=== PATIENT | female | born 1950 | race Two or more races ===

== ENCOUNTER → 2017-11-11 | Outpatient (CLI) | payer MEDICARE ==
--- NOTE | 2017-11-11 14:11 | REP ---
Clinical: Cough and shortness of breath. Technique: PA and lateral. Comparison: None. Findings: Mediastinum and cardiac silhouette are normal. Lung goodwin demonstrate chronic-appearing interstitial changes although coarsened markings and bronchitis cannot be excluded. No focal consolidation, effusion, or pneumothorax. Skeletal structures intact. Impression: Chronic-appearing interstitial changes. Cannot exclude acute coarsened markings and bronchitis. Signed by Catrachito Roberto MD 11/11/2017 02:03 P
== END ==
LOC: M LRY 13:36
PROVIDERS: ATTEND Nurse Practitioner Family
DX: J98.8 Other specified respiratory disorders (principal)